=== PATIENT | male | born 1990 | race African-American/Black ===

== ENCOUNTER 2025-04-19 16:33 | Emergency (ER) | payer OTHER, SELFPAY | END 2025-04-19 18:24 | LOC: CSHERS 16:33 | DX: Z53.21 Procedure and treatment not carried out due to patient leaving prior to being seen by health care provider (principal) ==

== ENCOUNTER 2025-06-17 06:44 | Emergency (ER) | payer SELFPAY | END 2025-06-17 08:33 | disposition home or self-care (01) | LOC: CSHERS 06:44 | DX: B34.9 Viral infection, unspecified (principal) | CPT/HCPCS: 87428; 99283 ==